=== PATIENT | male | born 1995 | race African-American/Black ===

== ENCOUNTER 2017-02-03 06:10 | Day surgery (SDC) | payer OTHER ==
[2017-02-03] MEDS ORDERED: ceFAZolin 2 GM/50 ML 50 ML IV ONE (06:31)
[2017-02-03] MEDS ORDERED: CELECOXIB 100 MG CAPSULE PO ONE (06:32)
[2017-02-03] MEDS ORDERED: ACETAMINOPHEN 1,000 MG/100 ML 100 ML IV ONE (06:32)
[2017-02-03] MEDS ORDERED: LACTATED RINGERS 1,000 ML IV ONE (07:02)
[2017-02-03] MEDS ORDERED: EPINEPHrine 1 MG/1 ML 30 ML MDV IVP ONE (08:49)
[2017-02-03] MEDS ORDERED: BUPIVACAINE 0.25% PF 30 ML VIAL SUBQ ONE (10:12)
== END 2017-02-03 06:11 | disposition home or self-care (01) ==
PROC: 0RNJ4ZZ Release Right Shoulder Joint, Percutaneous Endoscopic Approach (ICD-10-PCS; 2017-02-03)
PROC: 0RQJ4ZZ Repair Right Shoulder Joint, Percutaneous Endoscopic Approach (ICD-10-PCS; principal; 2017-02-03 07:30)
PROC: 0MM14ZZ Reattachment of Right Shoulder Bursa and Ligament, Percutaneous Endoscopic Approach (ICD-10-PCS; 2017-02-03 07:30)
DX: S43.431A Superior glenoid labrum lesion of right shoulder, initial encounter (principal); S43.491A Other sprain of right shoulder joint, initial encounter; M25.311 Other instability, right shoulder; M75.41 Impingement syndrome of right shoulder; V29.9XXA Motorcycle rider (driver) (passenger) injured in unspecified traffic accident, initial encounter
CPT/HCPCS: 29807; 29826; A9270; C1713; J0131; J0690; J7120

== ENCOUNTER 2017-07-17 09:48 | Outpatient (CLI) | payer OTHER | END 2017-07-17 09:49 | disposition home or self-care (01) | LOC: SC 09:48 | PROVIDERS: ATTEND Internal Medicine Pulmonary Disease | DX: G47.10 Hypersomnia, unspecified (principal) | CPT/HCPCS: 99203; 99212 ==

== ENCOUNTER 2017-08-15 19:12 | Outpatient (CLI) | payer OTHER | END 2017-08-15 19:13 | disposition home or self-care (01) | LOC: SC 19:12 | PROVIDERS: ATTEND Internal Medicine Pulmonary Disease | DX: G47.33 Obstructive sleep apnea (adult) (pediatric) (principal) | CPT/HCPCS: 95810 ==

== ENCOUNTER 2017-09-18 14:19 | Outpatient (CLI) | payer OTHER | END 2017-09-18 14:20 | disposition home or self-care (01) | LOC: SC 14:19 | PROVIDERS: ATTEND Nurse Practitioner Family | DX: G47.33 Obstructive sleep apnea (adult) (pediatric) (principal) | CPT/HCPCS: 99212; 99214 ==

== ENCOUNTER 2017-11-29 09:13 | Outpatient (CLI) | payer OTHER | END 2017-11-29 09:14 | disposition home or self-care (01) | LOC: SC 09:13 | PROVIDERS: ATTEND Nurse Practitioner Family | DX: G47.33 Obstructive sleep apnea (adult) (pediatric) (principal) | CPT/HCPCS: 99212; 99214 ==